=== PATIENT | male | born 1950 | race Caucasian/White ===

== ENCOUNTER 2018-05-16 06:45 | Day surgery (SDC) | payer OTHER ==
[~2018-05-16 06:45] MED LIST: LACTATED RINGER'S 1,000 ML IV
[2018-05-16] MEDS: MOXIFLOXACIN 0.5% 3 ML OPH OPER (07:26)
[2018-05-16] MEDS: BROMFENAC SODIUM 1.7 ML OPH DROP OPER (07:26)
[2018-05-16] MEDS: TETRACAINE 0.5% 4 ML OPH OPER (07:26)
[2018-05-16] MEDS: LIDOCAINE 3.5% GEL TUBE OPER (07:27)
[2018-05-16] MEDS: PHENYLephrine 2.5% 15 ML OPH OPER (07:31)
[2018-05-16] MEDS ORDERED: PROPOFOL 20 ML (07:49)
[2018-05-16] MEDS ORDERED: CEFAZOLIN 1 GM INJ (07:49)
[2018-05-16] MEDS ORDERED: LIDOCAINE 2% (SDV) 5 ML INJ (07:49)
[2018-05-16] MEDS ORDERED: MIDAZOLAM 1 MG/ML 2 ML INJ (07:49)
[2018-05-16] MEDS: PHENYLephrine 10% 5 ML OPH RIGHT EYE (08:00)
[2018-05-16] MEDS: LIDOCAINE 2%/EPI (MDV) 20ML INJ INJ (08:00)
[2018-05-16] MEDS ORDERED: PHENYLephrine 10% 5 ML OPH (08:10)
[2018-05-16] MEDS ORDERED: TOBRAMYCIN/DEXAMETH 3.5 GM OPH OINT (08:10)
[2018-05-16] MEDS: TOBRAMYCIN/DEXAMETH 3.5 GM OPH OINT RIGHT EYE (08:45)
[2018-05-16] MEDS ORDERED: ALBUTEROL 0.083% (NEB) 2.5 MG/3 ML AMP HHN (09:00)
[2018-05-16] MEDS ORDERED: OXYCODONE/ACETAMINOPHEN (5/325) TAB PO (09:00)
[2018-05-16] MEDS ORDERED: LABETALOL HCL 20MG INJ IV (09:00)
[2018-05-16] MEDS ORDERED: hydrALAzine 20 MG INJ IV (09:00)
[2018-05-16] MEDS ORDERED: DIPHENHYDRAMINE 50 MG INJ IV (09:00)
[2018-05-16] MEDS ORDERED: ONDANSETRON 4 MG INJ IV (09:00)
[2018-05-16] MEDS ORDERED: FENTAnyl 50 MCG/ML VIAL IV (09:00)
[2018-05-16] MEDS ORDERED: ACETAMINOPHEN 500 MG TAB PO (09:00)
[2018-05-16] MEDS ORDERED: ACETAMINOPHEN 325 MG TAB PO (09:00)
[2018-05-16] MEDS: INSULIN ASPART [NOVOLOG] 3 ML PEN SC (09:35)
== END 2018-05-16 10:40 | disposition home or self-care (01) ==
LOC: SDS 06:45
DX: H11.051 Peripheral pterygium, progressive, right eye (principal); E11.9 Type 2 diabetes mellitus without complications; I10 Essential (primary) hypertension; E78.5 Hyperlipidemia, unspecified; Z79.84 Long term (current) use of oral hypoglycemic drugs
CPT/HCPCS: 65426; 82962